=== PATIENT | male | born 1965 | race Caucasian/White ===

== ENCOUNTER 2019-02-02 05:20 | Observation (INO) | payer OTHER ==
[2019-02-02] MEDS ORDERED: ONDANSETRON 4 MG/2 ML VIAL ONE ×2 (05:41→07:49)
[2019-02-02] MEDS ORDERED: PANTOPRAZOLE 40 MG INJ ONE (05:41)
[2019-02-02] MEDS ORDERED: NA CHLORIDE 0.9% 1,000 ML ONE (05:41)
[2019-02-02] MEDS ORDERED: LIDOCAINE VISCOUS 2% SOLN 15 ML UDC ONE (05:41)
[2019-02-02] MEDS ORDERED: MAGNE/ALUM HYDROXD 30 ML UCUP ONE (05:41)
[2019-02-02 05:49] LABS: Absolute Lymphocytes (CBC) 1.3 K/uL (0.7-4.9); Basophils % 0.5 % (0-1.3); Hematocrit 43.8 % (39.6-49.0); Lymphocytes % 10.7 % (15.3-44.8); MPV 8.6 fL (7.6-11.3); RBC Red Blood Cell Count 4.87 M/uL (4.33-5.43)
[2019-02-02 06:08] LABS: Albumin 4.3 g/dL (3.4-5.0); Bilirubin Direct 0.2 mg/dL (0-0.2); Bilirubin Total 0.6 mg/dL (0.2-1.0); Potassium 3.7 mmol/L (3.5-5.1); Protein, Total 7.5 g/dL (6.4-8.2)
[2019-02-02] MEDS ORDERED: MORPHINE 4 MG/ML SYR ONE ×2 (06:35→07:49)
--- NOTE | 2019-02-02 07:26 | RAD REPORT ---
EXAM DESCRIPTION: CT - Abdomen Pelvis W Contrast - 02/02/2019 6:54 am CLINICAL HISTORY: Abdominal pain COMPARISON: none. TECHNIQUE: Computed axial tomography of the abdomen pelvis was obtained. 100 cc Isovue-300 was admin istered intravenously. Oral contrast was not requested which limits evaluation of bowel. All CT scans are performed using dose optimization technique as appropriate and may include automated exposure control or mA/KV adjustment according to patient size. FINDINGS: Mild fatty liver Spleen, pancreas, left adrenal and kidneys appear unremarkable. A 1 millimeter right inferior myelolipoma There is no evidence of diverticulitis. The appendix is retrocecal and extends superiorly. It Is thickened with stranding in the adjacent fat . No free air. No abscess IMPRESSION: Appendicitis
[2019-02-02] MEDS ORDERED: PIPER/TAZO/NS 3.375gm 3.375 GM/100 ML BAG ONE (07:49)
--- NOTE | 2019-02-02 08:01 | EDPHYS ---
Physician Documentation [facility] Name: Jay Daley Age: 53 yrs Sex: Male : 1965 Arrival Date: 02/02/2019 Time: 05:22 Bed 6 Private MD: ED Physician Yon Kc HPI: 02/02 05:52 This 53 yrs old Male presents to ER via Ambulatory with complaints of tw4 Abdominal Pain. 05:52 The patient presents with abdominal pain. Onset: The symptoms/episode began/occurred tw4 today. The symptoms do not radiate. The symptoms are described as sharp. Modifying factors: The symptoms are alleviated by nothing, the symptoms are aggravated by nothing. Severity of pain: At its worst the pain was mild in the emergency department the pain is unchanged. The patient has not experienced similar symptoms in the past. 05:52 The patient presents with abdominal pain in the epigastric area, in the upper abdomen. tw4 Associated signs and symptoms: Pertinent positives: nausea, Pertinent negatives: chest pain, constipation, diarrhea, dysuria, fever, headache, palpitations, shortness of breath, testicular pain, vomiting, vomiting blood. Historical: - Allergies: 05:33 No Known Allergies; tr5 - Home Meds: 05:33 Lipitor Oral [Active]; Simvastatin Oral [Active]; Ativan Oral [Active]; tr5 - PMHx: 05:33 Hypertension; Hyperlipidemia; tr5 - PSHx: 05:33 Knee surgery; tr5 - Immunization history:: Adult Immunizations up to date. - Social history:: Smoking status: Patient/guardian denies using tobacco, never smoked. - Ebola Screening: : No symptoms or risks identified at this time. ROS: 05:52 Constitutional: Negative for fever, chills, and weight loss, Eyes: Negative for injury, tw4 pain, redness, and discharge. 05:52 Cardiovascular: Negative for chest pain, palpitations, and edema, Respiratory: Negative for shortness of breath, cough, wheezing, and pleuritic chest pain, Back: Negative for injury and pain, MS/Extremity: Negative for injury and deformity, Skin: Negative for injury, rash, and discoloration, Neuro: Negative for headache, weakness, numbness, tingling, and seizure. 05:52 Abdomen/GI: Positive for abdominal pain, nausea, abdominal cramps, Negative for nausea and vomiting, nausea, vomiting, and diarrhea, diarrhea, constipation, abdominal distension, anorexia, dysphagia, hematemesis, black/tarry stool, rectal pain, rectal bleeding, bowel incontinence, flatulence. Exam: 05:52 Constitutional: This is a well developed, well nourished patient who is awake, alert, tw4 and in no acute distress. Head/Face: Normocephalic, atraumatic. Chest/axilla: Normal chest wall appearance and motion. Nontender with no deformity. No lesions are appreciated. Cardiovascular: Regular rate and rhythm with a normal S1 and S2. No gallops, murmurs, or rubs. Normal PMI, no JVD. No pulse deficits. Respiratory: Lungs have equal breath sounds bilaterally, clear to auscultation and percussion. No rales, rhonchi or wheezes noted. No increased work of breathing, no retractions or nasal flaring. Back: No spinal tenderness. No costovertebral tenderness. Full range of motion. Skin: Warm, dry with normal turgor. Normal color with no rashes, no lesions, and no evidence of cellulitis. MS/ Extremity: Pulses equal, no cyanosis. Neurovascular intact. Full, normal range of motion. Neuro: Awake and alert, GCS 15, oriented to person, place, time, and situation. Cranial nerves II-XII grossly intact. Motor strength 5/5 in all extremities. Sensory grossly intact. Cerebellar exam normal. Normal gait. 05:52 Abdomen/GI: Inspection: abdomen appears normal, Bowel sounds: diminished, in all quadrants, Palpation: moderate abdominal tenderness, in the epigastric area and right upper quadrant. Vital Signs: 05:33 BP 154 / 96; Pulse 73; Resp 17; Pulse Ox 100% on R/A; Weight 111.13 kg; Height 6 ft. 5 tr5 in. (195.58 cm); 07:07 Temp 97.7; sg 05:33 Body Mass Index 29.05 (111.13 kg, 195.58 cm) tr5 MDM: 05:25 Patient medically screened. tw4 07:58 Data reviewed: vital signs, nurses notes, lab test result(s), radiologic studies, CT jr8 scan. Data interpreted: Pulse oximetry: on room air is 100 %. Interpretation: normal. Counseling: I had a detailed discussion with the patient and/or guardian regarding: the historical points, exam findings, and any diagnostic results supporting the discharge/admit diagnosis, lab results, radiology results, the need for further work-up and treatment in the hospital. Physician consultation: Miguel Rojas MD was called at 07:58, was contacted at 07:58, regarding consult. ED course: Dr. Johansen called and accepted patient for admit. Dr. Rojas to do surgery within the hour. 02/02 05:26 Order name: Basic Metabolic Panel; Complete Time: 06:15 02/02 06:15 Interpretation: Normal except: CL 108; GFR 70; GLUC 143. 02/02 05:26 Order name: CBC with Diff; Complete Time: 06:15 02/02 05:26 Order name: Creatinine for Radiology; Complete Time: 06:15 02/02 06:15 Interpretation: Within normal limits: CRE 1.10. 02/02 05:26 Order name: Hepatic Function; Complete Time: 06:15 02/02 06:15 Interpretation: Within normal limits. 02/02 05:26 Order name: Lipase; Complete Time: 06:15 02/02 06:16 Interpretation: Within normal limits: LIP 160. 02/02 06:30 Order name: CT Abd/Pelvis - IV Contrast Only; Complete Time: 07:33 02/02 05:26 Order name: IV Saline Lock; Complete Time: 05:37 02/02 05:26 Order name: Labs collected and sent; Complete Time: 05:37 tw4 Administered Medications: 05:48 Drug: ProTONIX 40 mg Route: IVP; Site: right forearm; tr5 06:38 Follow up: Response: Marked relief of symptoms tr5 05:48 Drug: Zofran 4 mg Route: IVP; Site: right forearm; tr5 06:37 Follow up: Response: Marked relief of symptoms tr5 05:49 Drug: NS 0.9% 1000 ml Route: IV; Rate: 1 bolus; Site: right forearm; tr5 05:49 Drug: GI Cocktail with - (Phenobarbital-Belladonna 10 ml, Maalox Suspension 30 tr5 ml, Lidocaine Liquid 2 % 20 ml) Route: PO; 06:38 Follow up: Response: Marked relief of symptoms tr5 06:37 Drug: morphine 4 mg {Note: RASS:0.} Route: IVP; Site: right antecubital; tr5 07:46 Follow up: Response: No adverse reaction; Pain is unchanged, physician notified; RASS: tw2 Alert and Calm (0) 07:55 Drug: Zofran 4 mg Route: IVP; Site: right forearm; sg 07:57 Drug: Zosyn 3.375 grams Route: IVPB; Infused Over: 60 mins; Site: right forearm; sg 07:57 Drug: morphine 4 mg Route: IVP; Site: right forearm; sg Disposition: 02/02/19 07:59 Hospitalization ordered by Mark Johansen for Observation. Preliminary diagnosis is Acute appendicitis with localized peritonitis. - Bed requested for Telemetry/MedSurg (observation). - Status is Observation. sg - Condition is Stable. - Problem is new. - Symptoms are unchanged. UTI on Admission? No Addendum: 02/06/2019 06:56 Co-signature as Attending Physician, Yon Kc MD I agree with the assessment and t w4 plan of care. Signatures: Dispatcher [employer] EDMS Jeremias Herman RN RN sg Rodríguez Morillo PA PA jr8 Yon Kc MD MD tw4 Emilie Azar Tommie, RN RN tr5 Saloni Leo RN tw2 Corrections: (The following items were deleted from the chart) 02/02 05:53 05:52 Associated signs and symptoms: none. 4 tw4 08:08 07:59 Hospitalization Ordered by Mark Johansen DO for Observation. Preliminary eb diagnosis is Acute appendicitis with localized peritonitis. Bed requested for Telemetry/MedSurg (observation). Status is Observation. Condition is Stable. Problem is new. Symptoms are unchanged. UTI on Admission? No. jr8 08:58 08:08 02/02/2019 07:59 Hospitalization Ordered by Mark Johansen DO for Observation. sg Preliminary diagnosis is Acute appendicitis with localized peritonitis. Bed requested for Telemetry/MedSurg (observation). Status is Observation. Condition is Stable. Problem is new. Symptoms are unchanged. UTI on Admission? No. eb
--- NOTE | 2019-02-02 08:01 | ER ---
Nurse's Notes [facility] Name: Jay Daley Age: 53 yrs Sex: Male : 1965 Arrival Date: 02/02/2019 Time: 05:22 Bed 6 Private MD: Diagnosis: Acute appendicitis with localized peritonitis Presentation: 02/02 05:30 Presenting complaint: Patient states: "At about 11:30 last night I woke up with some tr5 painful abdominal cramps. It hurts mostly in the upper L area and it has been making me a little nauseous.". Transition of care: patient was not received from another setting of care. Onset of symptoms was February 02, 2019. Risk Assessment: Do you want to hurt yourself or someone else? Patient reports no desire to harm self or others. Initial Sepsis Screen: Does the patient meet any 2 criteria? No. Patient's initial sepsis screen is negative. Does the patient have a suspected source of infection? No. Patient's initial sepsis screen is negative. Care prior to arrival: None. 05:30 Method Of Arrival: Ambulatory tr5 05:30 Acuity: CARIN 3 tr5 Historical: - Allergies: 05:33 No Known Allergies; tr5 - Home Meds: 05:33 Lipitor Oral [Active]; Simvastatin Oral [Active]; Ativan Oral [Active]; tr5 - PMHx: 05:33 Hypertension; Hyperlipidemia; tr5 - PSHx: 05:33 Knee surgery; tr5 - Immunization history:: Adult Immunizations up to date. - Social history:: Smoking status: Patient/guardian denies using tobacco, never smoked. - Ebola Screening: : No symptoms or risks identified at this time. Screenin:35 Abuse screen: Denies threats or abuse. Nutritional screening: No deficits noted. tr5 Tuberculosis screening: No symptoms or risk factors identified. Fall Risk None identified. Assessment: 05:35 General: Appears uncomfortable, Behavior is calm, cooperative, appropriate for age. tr5 Pain: Complains of pain in left upper quadrant Pain does not radiate. Quality of pain is described as crampy, Pain began 4 hours ago. Neuro: Level of Consciousness is awake, alert, obeys commands, Oriented to person, place, time, [facility] House[facility] are equal bilaterally Moves all extremities. Cardiovascular: Heart tones present Capillary refill < 3 seconds Pulses are all present. Edema is absent. Respiratory: Airway is patent Respiratory effort is even, unlabored, Respiratory pattern is regular, symmetrical. GI: Bowel sounds present X 4 quads. Abd is soft Abdomen is tender to palpation in right upper quadrant and left upper quadrant. GI: Reports nausea. : No signs and/or symptoms were reported regarding the genitourinary system. EENT: No signs and/or symptoms were reported regarding the EENT system. Derm: No signs and/or symptoms reported regarding the dermatologic system. Musculoskeletal: No signs and/or symptoms reported regarding the musculoskeletal system. 07:25 Reassessment: pt to void x1, denies any urinary symptoms at this time. sg 07:33 Reassessment: Patient appears in no apparent distress at this time. Rodríguez HAYNES at sg bedside for evaluation and update on POC and results from radiology, pt and pt family stated understanding, awaiting new orders at this time. 08:46 Reassessment: Patient appears in no apparent distress at this time. Patient and/or sg family updated on plan of care and expected duration. Pain level reassessed. awaiting a bed assignment, awaiting OR team at this time, pt reports pain controlled and family at bedside. Vital Signs: 05:33 BP 154 / 96; Pulse 73; Resp 17; Pulse Ox 100% on R/A; Weight 111.13 kg; Height 6 ft. 5 tr5 in. (195.58 cm); 07:07 Temp 97.7; sg 05:33 Body Mass Index 29.05 (111.13 kg, 195.58 cm) tr5 ED Course: 05:22 Patient arrived in ED. cl3 05:25 Yon cK MD is Attending Physician. tw4 05:30 Froilan Cameron, RN is Primary Nurse. tr5 05:32 Triage completed. tr5 05:33 Arm band placed on Patient placed. tr5 05:35 Placed in gown. Bed in low position. Call light in reach. Side rails up X 1. tr5 06:[address] via stretcher. eh 06:54 CT completed. Patient tolerated procedure well. Patient moved back from CT. eh 06:54 CT Abd/Pelvis - IV Contrast Only In Process Unspecified. EDMS 07:06 Primary Nurse role handed off by Froilan Cameron, RN sg 07:06 Jeremias Herman, RN is Primary Nurse. sg 07:31 Rod[facility]guez Morillo [facility] jr8 07:55 Surgical consent explained by physician, signed by patient. sg 07:59 Mark Johansen DO is Hospitalizing Provider. jr8 08:20 Admitting physician to see patient. sg Administered Medications: 05:48 Drug: ProTONIX 40 mg Route: IVP; Site: right forearm; tr5 06:38 Follow up: Response: Marked relief of symptoms tr5 05:48 Drug: Zofran 4 mg Route: IVP; Site: right forearm; tr5 06:37 Follow up: Response: Marked relief of symptoms tr5 05:49 Drug: NS 0.9% 1000 ml Route: IV; Rate: 1 bolus; Site: right forearm; tr5 05:49 Drug: GI Cocktail with - (Phenobarbital-Belladonna 10 ml, Maalox Suspension 30 tr5 ml, Lidocaine Liquid 2 % 20 ml) Route: PO; 06:38 Follow up: Response: Marked relief of symptoms tr5 06:37 Drug: morphine 4 mg {Note: RASS:0.} Route: IVP; Site: right antecubital; tr5 07:46 Follow up: Response: No adverse reaction; Pain is unchanged, physician notified; RASS: tw2 Alert and Calm (0) 07:55 Drug: Zofran 4 mg Route: IVP; Site: right forearm; sg 07:57 Drug: Zosyn 3.375 grams Route: IVPB; Infused Over: 60 mins; Site: right forearm; sg 07:57 Drug: morphine 4 mg Route: IVP; Site: right forearm; sg Outcome: 07:59 Decision to Hospitalize by Provider. jr8 08:58 Patient left the ED. sg Signatures: Dispatcher [employer] EDMS Jeremias Herman RN RN sg Chava Sin Josh, PA PA jr8 Saloni Leo RN RN tw2 Yon Kc MD MD tw4 Froilan Cameron RN RN tr5 Ping Nguyen cl3
--- NOTE | 2019-02-02 09:04 | P.HP ---
Certification for Inpatient Patient admitted to: Observation With expected LOS: <2 Midnights Patient will require the following post-hospital care: None Practitioner: I am a practitioner with admitting privileges, knowledge of patient current condition, hospital course, and medical plan of care. Services: Services provided to patient in accordance with Admission requirements found in Title 42 Section 412.3 of the Code of Federal Regulations Patient History Date of Service: 02/02/19 Primary Care Provider: CALLIE Montgomery Reason for admission: Dominant pain History of Present Illness: 53-year-old male with history of hypertension, hypertriglyceridemia. Patient presented to the emergency room with increasing abdominal pain pain started last night. It was mainly to the periumbilical region. It is now progressed to the right lower quadrant. He rated the pain about at 6/10. He did not have any significant nausea, vomiting, fever, chills, or shortness of breath. The pain persisted and felt very uncomfortable. He came to the ER for further evaluation. In the ER patient was evaluated. White count 12.2, hemoglobin 15.2. Sodium 139 , potassium 3.7, BUN of 16, creatinine 1.01 with a GFR of 70. Glucose 143. Lipase unremarkable. CT scan revealed acute appendicitis. Patient was admitted for treatment. When I saw the patient in the ER, pain controlled with medication. Surgery has been consulted. Patient NPO in anticipation for surgery. Allergies No Known Allergies Allergy (Unverified 02/02/19 08:53) Home medications list reviewed: Yes - Past Medical/Surgical History Diabetic: No -: Hypertension -: Hyperlipidemia -: Subclinical hypothyroidism -: Hand surgery -: Knee surgery Psychosocial/ Personal History: Patient is . - Family History Father -: Other (see notes) (Hypothyroidism) - Social History Smoking Status: Never smoker Alcohol use: Yes CD- Drugs: No Caffeine use: Yes Place of Residence: Home Review of Systems General: As per HPI Eyes: Unremarkable ENT: Unremarkable Respiratory: Unremarkable Cardiovascular: Unremarkable Gastrointestinal: Abdominal Pain, As per HPI Genitourinary: Unremarkable Musculoskeletal: Unremarkable Integumentary: Unremarkable Neurological: Unremarkable Lymphatics: Unremarkable Physical Examination - Physical Exam General: Alert, In no apparent distress, Oriented x3, Cooperative HEENT: Atraumatic, Normocephalic, Mucous membr. moist/pink Neck: Supple, No Thyromegaly Respiratory: Clear to auscultation bilaterally, Normal air movement Cardiovascular: Normal pulses, Regular rate/rhythm Gastrointestinal: Normal bowel sounds, Soft and benign, Non-distended, No masses , No rebound, No guarding, Tenderness (Mild pain to the right lower quadrant with deep palpation) Musculoskeletal: No erythema, No tenderness, No warmth Integumentary: No tenderness/swelling, No erythema, No warmth, No cyanosis Neurological: Normal speech, Normal strength at 5/5 x4 extr, Normal tone, Normal affect - Studies Laboratory Data (last 24 hrs) 02/02/19 05:35: Creatinine 1.10 02/02/19 05:35: WBC 12.2 H, Hgb 15.2, Hct 43.8, Plt Count 254 02/02/19 05:35: Sodium 139, Potassium 3.7, BUN 16, Creatinine 1.11, Glucose 143 H, Total Bilirubin 0.6, AST 18, ALT 43, Alkaline Phosphatase 71, Lipase 160 Assessment and Plan - Plan Impression: Right lower quadrant abdominal pain secondary to acute appendicitis Hypertension Hyperlipidemia Plan: Right lower quadrant abdominal pain secondary to acute appendicitis: Patient will be admitted for further evaluation and treatment. Surgery has been consulted. Patient NPO as surgical intervention is planned. Patient will likely require laparoscopic appendectomy. Will start IV fluids. Will provide IV pain medication. Will provide SCD for DVT prophylaxis. Await findings and further recommendations from surgery. Anticipate discharge likely within the next 1-2 days pending surgical evaluation and treatment. Hypertension: Will provide IV medication as needed. Hyperlipidemia: Will hold medication at this time. Discharge Plan: Home Plan to discharge in: 48 Hours - Advance Directives Does patient have a Living Will: No Does patient have a Durable POA for Healthcare: No - Code Status/Comfort Care Code Status Assessed: Yes (Patient is full code) Time Spent Managing Pts Care (In Minutes): 55
[2019-02-02] MEDS ORDERED: Ringers Lactate 1,000 ML IV ONE ×2 (09:13→10:28)
[2019-02-02] MEDS ORDERED: SUCCINYLCHOLINE 20 MG/ML (10 ML) IV ONE (09:36)
[2019-02-02] MEDS ORDERED: PROPOFOL 200 MG/20 ML VIAL IV ONE (09:38)
[2019-02-02] MEDS ORDERED: FENTANYL CITR 250 MCG/5 ML ONE (09:39)
[2019-02-02] MEDS ORDERED: MIDAZOLAM HCL 2 MG/2 ML INJ ONE (09:39)
[2019-02-02] MEDS ORDERED: ROCURONIUM 50 MG/5 ML VIAL IV ONE (09:39)
[2019-02-02] MEDS ORDERED: ACETAMINOPHEN 500 MG TAB PO PRN (09:58)
[2019-02-02] MEDS ORDERED: MORPHINE 2 MG/ML SYR IV PRN (09:58)
[2019-02-02] MEDS ORDERED: HYDRALAZINE HCL 20 MG/ML VIAL IV PRN (09:58)
[2019-02-02] MEDS ORDERED: ACETAMINOPHEN 650MG/RECT SUPP PR PRN (09:58)
[2019-02-02] MEDS ORDERED: ONDANSETRON 4 MG/2 ML VIAL IV PRN ×2 (09:58→10:46)
[2019-02-02] MEDS ORDERED: NEOSTIGMINE 1 MG/ML -5 ML ONE (10:13)
[2019-02-02] MEDS ORDERED: GLYCOPYRROLATE 0.2 MG/ML SYR ONE ×2 (10:13)
[2019-02-02 10:21] LABS: Urine Blood NEGATIVE (NEG); Urine Glucose NEGATIVE (NEG); Urine Protein NEGATIVE (NEG); Urine Specific Gravity 1.015 (1.005-1.030); Urine pH 7.5 (5.0-7.0)
--- NOTE | 2019-02-02 10:41 | P.OP ---
Preoperative diagnosis: Acute Appendicitis Postoperative diagnosis: Acute Suppurative Appendicitis Primary procedure: Lap Appy Anesthesia: General Estimated blood loss: min Specimen: Appy Findings: as above Complications: None Transferred to: Recovery Room Condition: Good
[2019-02-02] MEDS ORDERED: HYDROMORPHONE HCL 1 MG/ML INJ IV PRN (10:46)
[2019-02-02] MEDS ORDERED: KETOROLAC 30 MG/ML INJ ONE (11:03)
[2019-02-02 12:16] VITALS: BMI 29.0
[2019-02-02] MEDS: HYDROCODONE/APAP 7.5/325 MG TAB PO PRN ×2 (13:09→20:08)
--- NOTE | 2019-02-02 13:43 | PREOPCON ---
Date of Consultation: 02/02/2019 Chief Complaint: Abdominal pain. History Of Present Illness: Patient is a 53-year-old gentleman, who had acute onset of periumbilical pain localizing to the right lower quadrant associated with anorexia and nausea. No vomiting. No d iarrhea or constipation. No blood in his stool. No dysuria or hematuria. No sore throat, runny nos e, cough, headaches, dizziness, chest pain, fever, or chills. Review of Systems: Otherwise unremarkable. Past Medical History: Hypertension, hypercholesterolemia, hypertriglyceridemia. Past Surgical History: Left knee surgery. Right hand surgery. Allergies: NO ALLERGIES. Social History: Does not smoke. Drinks occasionally. Family History: Significant for heart disease Physical Examination: Vital Signs: Stable, currently afebrile. General: Awake, alert, oriented x3. Head and Neck: Cranial nerves 2 through 12 are grossly within normal limits. No neck masses. No JV D. Throat clear. Neck is supple. Chest: Clear. Heart: S1, S2. Abdomen: Soft. Positive Rovsing sign. Positive bowel sounds. Positive right lower quadrant tender ness with rebound. No rigidity or guarding. Extremities: Adequately perfused. Nontender. Neuro: Nonfocal. Laboratory Data: White count is slightly elevated at 12,000 with a left shift. Electrolytes are rev iewed. CT of the abdomen and pelvis consistent with acute retrocecal appendicitis. Assessment: Acute appendicitis. Plan: Admit n.p.o., IV fluid, IV antibiotic to the OR for lap appy, possible open. Patient understa nds the risks, benefits, and alternatives and agrees to procedure. JAKUB/KENDELL Voice ID: [id number] Report ID: [id number]
[2019-02-02] MEDS ORDERED: INFLUENZA VACCINE (for 3y+) 0.5 ML DOSE IMVAC ONE (14:00)
[2019-02-02] MEDS: NA CHLORIDE 0.9% 1,000 ML IV SCH ×2 (16:03→19:58)
[2019-02-02] MEDS: PIPER/TAZO/NS 3.375gm 3.375 GM/100 ML BAG IVPB SCH (16:57)
--- NOTE | 2019-02-02 21:03 | OP ---
Date of Procedure: 02/02/2019 Surgeon: Miguel Rojas MD Preoperative Diagnosis: Acute appendicitis. Postoperative Diagnosis: Acute suppurative appendicitis. Procedure Performed: Laparoscopic appendectomy. Estimated Blood Loss: Minimal. Findings: As above. Anesthesia: General. Complications: None. Disposition: The patient tolerated the procedure in stable condition and taken to Recovery in good g eneral condition. Procedure In Detail: The patient was brought to the OR and placed in supine position. General anest hesia begun. Patient was prepped and draped in usual sterile fashion. Marcaine 0.5% was infiltrated locally. A 15-blade was used to make a 1 cm supraumbilical midline incision. Subcutaneous tissue d ivided. The fascia was identified and divided. A #1 Vicryl stay suture was placed. Peritoneal cavi ty was entered with blunt dissection. A 12 mm trocar was placed into the peritoneal cavity under dir ect vision. Pneumoperitoneum was established and then two 5 mm trocars were placed 1 in the suprapubic region and 1 in the left lower quadrant. Laparoscopy revealed acute suppurative appendicitis. Retrocecal in l ocation. The base of the appendix on the cecum clearly identified as well as the mesoappendix and a GRIS stapling device used to divide both structures. The appendix retrieved through the umbilicus via an EndoCatch bag. Right lower quadrant irrigated. Pelvis examined. No evidence of bleeding or bow el injury appreciated. All trocars removed under direct vision. Stay sutures were tied to each othe r to reapproximate the fascial defect. Subcu wounds irrigated. Bleeding controlled with cautery. A 3-0 chromic used to reapproximate subcutaneous tissue and close the skin. [place] used to close ski n. Sterile dressing was applied. The patient was awakened and taken to Recovery in good general cond ition. Discharge Instructions: The patient will be kept another night for IV antibiotics because he had sup purative appendicitis. /MODL Voice ID: [id number] Report ID: [id number]
[2019-02-03] MEDS: PIPER/TAZO/NS 3.375gm 3.375 GM/100 ML BAG IVPB SCH ×2 (00:03→08:00)
[2019-02-03] MEDS: HYDROCODONE/APAP 7.5/325 MG TAB PO PRN ×2 (01:55→07:54)
[2019-02-03 03:21] LABS: Urine Appearance CLEAR; Urine Bilirubin NEGATIVE (NEG); Urine Blood NEGATIVE (NEG); Urine Color YELLOW; Urine Glucose NEGATIVE (NEG); Urine Protein NEGATIVE (NEG); Urine Specific Gravity 1.025 (1.005-1.030); Urine Urobilinogen 0.2 mg/dL (0.2-1.0)
[2019-02-03 03:28] LABS: Urine Microscopic Reflex ORDER UMIC
[2019-02-03] MEDS: NA CHLORIDE 0.9% 1,000 ML IV SCH ×2 (03:46→05:58)
[2019-02-03 03:49] LABS: Urine Bacteria <20 /HPF (NONE SEEN); Urine Culture Reflex Order REFLEXED; Urine RBC NONE SEEN /HPF (NONE SEEN)
[2019-02-03 05:26] LABS: Absolute Lymphocytes (CBC) 1.6 K/uL (0.7-4.9); Basophils % 0.4 % (0-1.3); Lymphocytes % 14.2 % (15.3-44.8); MPV 8.9 fL (7.6-11.3); RBC Red Blood Cell Count 3.63 M/uL (4.33-5.43)
[2019-02-03 05:41] LABS: Magnesium 2.1 mg/dL (1.8-2.4); Potassium 4.2 mmol/L (3.5-5.1)
[2019-02-03 08:14] VITALS: BP 125/73; TEMP 97.6
[2019-02-03 08:33] VITALS: O2SAT 95
--- NOTE | 2019-02-03 08:46 | P.DS ---
Admission Date: 02/02/19 Discharge Date: 02/03/19 Primary [facility] Provider: [facility] Disposition: ROUTINE DISCHARGE Discharge Condition: GOOD Reason for Admission: Abdominal pain Consultations: Surgery-Dr. Rojas Procedures: CT scan: FINDINGS: Mild fatty liver Spleen, pancreas, left adrenal and kidneys appear unremarkable. A 1 millimeter right inferior myelolipoma There is no evidence of diverticulitis. The appendix is retrocecal and extends superiorly. It Is thickened with stranding in the adjacent fat. No free air. No abscess IMPRESSION: Appendicitis Surgery: Date of surgery: 02/02/2019 Surgeon: Dr. Rojas Preop diagnosis: Acute appendicitis Postop diagnosis: Acute supportive appendicitis Complications: None Medical problem list: Right lower quadrant abdominal pain secondary to acute appendicitis Hypertension Hyperlipidemia Fatty liver Brief History of Present Illness: 53-year-old male with history of hypertension, hypertriglyceridemia. Patient presented to the emergency room with increasing abdominal pain pain started last night. It was mainly to the periumbilical region. It is now progressed to the right lower quadrant. He rated the pain about at 6/10. He did not have any significant nausea, vomiting, fever, chills, or shortness of breath. The pain persisted and felt very uncomfortable. He came to the ER for further evaluation. In the ER patient was evaluated. White count 12.2, hemoglobin 15.2. Sodium 139 , potassium 3.7, BUN of 16, creatinine 1.01 with a GFR of 70. Glucose 143. Lipase unremarkable. CT scan revealed acute appendicitis. Patient was admitted for treatment. When I saw the patient in the ER, pain controlled with medication. Surgery has been consulted. Patient NPO in anticipation for surgery. Hospital Course: Patient presented with right lower quadrant abdominal pain secondary to acute appendicitis. CT scan reviewed. Surgery consulted. Surgery recommended surgical intervention. Laparoscopic appendectomy performed. No complications noted. Patient has done well post operatively. Patient tolerating diet. At discharge patient will continue with surgery recommendations, medication and instructions. No heavy lifting, pushing or pulling. Recommend follow up with surgery within 1 week to follow up this hospitalization. Patient with history of hypertension. This has remained stable. Patient may continue with his home medications including aspirin 81 mg daily and candesartan /hydrochlorothiazide 16/12.5 mg daily. Patient with mixed hyperlipidemia. At discharge patient will continue with his current medication of Lipitor 20 mg daily, fish oil 2000 mg daily, and fenofibrate 135 mg daily. Patient with fatty liver. Lifestyle modification education provided. Vital Signs/Physical Exam: Temp Pulse Resp BP Pulse Ox 97.6 F 69 17 125/73 97 02/03/19 08:00 02/03/19 08:00 02/03/19 08:00 02/03/19 08:00 02/03/19 08:00 General: Alert, In no apparent distress, Oriented x3, Cooperative HEENT: Atraumatic Neck: Supple Respiratory: Clear to auscultation bilaterally, Normal air movement Cardiovascular: Normal pulses, Regular rate/rhythm Gastrointestinal: Normal bowel sounds, Soft and benign, Non-distended, No masses , No rebound, No guarding, Other (Postsurgical changes noted) Musculoskeletal: No tenderness, No warmth Integumentary: No erythema, No warmth, No cyanosis Neurological: Normal speech, Normal strength at 5/5 x4 extr, Normal tone, Normal affect Laboratory Data at Discharge: WBC 10.9 K/uL (4.3-10.9) 02/03/19 04:58 Hgb 11.7 g/dL (13.6-17.9) L D 02/03/19 04:58 Hct 33.0 % (39.6-49.0) L D 02/03/19 04:58 Plt Count 251 K/uL (152-406) 02/03/19 04:58 Sodium 138 mmol/L (136-145) 02/03/19 04:58 Potassium 4.2 mmol/L (3.5-5.1) 02/03/19 04:58 BUN 10 mg/dL (7-18) 02/03/19 04:58 Creatinine 1.00 mg/dL (0.55-1.3) 02/03/19 04:58 Glucose 128 mg/dL (74-106) H 02/03/19 04:58 Magnesium 2.1 mg/dL (1.8-2.4) 02/03/19 04:58 Total Bilirubin 0.6 mg/dL (0.2-1.0) 02/02/19 05:35 AST 18 U/L (15-37) 02/02/19 05:35 ALT 43 U/L (12-78) 02/02/19 05:35 Alkaline Phosphatase 71 U/L (45-117) 02/02/19 05:35 Lipase 160 U/L (73-393) 02/02/19 05:35 Home Medications: Aspirin [Aspirin EC 81 MG] 81 mg PO DAILY 02/02/19 Atorvastatin Calcium [Lipitor*] 20 mg PO BEDTIME 02/02/19 Candesartan/Hydrochlorothiazid [Candesartan-Hctz 16-12.5 mg Tb] 1 each PO DAILY 02/02/19 Docosahexanoic AC/Epa [Fish Oil 1,000 MG*] 2,000 mg PO DAILY 02/02/19 Fenofibric Acid (Choline) [Fenofibric Acid] 135 mg PO DAILY 02/02/19 Patient Discharge Instructions: 1. Recommend follow up with his PCP in 1-2 weeks to follow up this hospitalization. 2. Patient presented with right lower quadrant abdominal pain secondary to acute appendicitis. CT scan reviewed. Surgery consulted. Surgery recommended surgical intervention. Laparoscopic appendectomy performed. No complications noted. Patient has done well post operatively. Patient tolerating diet. At discharge patient will continue with surgery recommendations, medication and instructions. No heavy lifting, pushing or pulling. Recommend follow up with surgery within 1 week to follow up this hospitalization. 3. Patient with history of hypertension. This has remained stable. Patient may continue with his home medications including aspirin 81 mg daily and candesartan/hydrochlorothiazide 16/12.5 mg daily. 4. Patient with mixed hyperlipidemia. At discharge patient will continue with his current medication of Lipitor 20 mg daily, fish oil 2000 mg daily, and fenofibrate 135 mg daily. 5. Patient with fatty liver. Lifestyle modification education provided. Diet: AHA Activity: Ad alphonse Time spent managing pt's care (in minutes): 55
--- NOTE | 2019-02-03 14:18 | PN ---
Date of Progress Note: 02/03/2019 Subjective: Patient is status post lap appy postop day 1. Tolerating diet, ambulating, pain control led, on p.o. pain medication, afebrile. White count is normalized. Objective: VITAL SIGNS: Stable. He is afebrile. ABDOMEN: Soft, nondistended, nontender. Positive bowel sounds. Dressing is clean, dry, and intact. Assessment: Status post laparoscopic appendectomy. Recommendations: Patient cleared from Surgery for discharge. Followup in my office in 1 week. Disc harge instructions given. /[email or web address] Voice ID: [id number] Report ID: [id number]
== END 2019-02-03 10:56 | disposition home or self-care (01) ==
LOC: ER 05:20 → ERHOLD 08:54 → 2ND 10:53
PROVIDERS: ADMIT Family Medicine; ATTEND Family Medicine
PROC: 0DTJ4ZZ Resection of Appendix, Percutaneous Endoscopic Approach (ICD-10-PCS; principal; 2019-02-02 09:00)
DX: K35.80 Unspecified acute appendicitis (principal); I10 Essential (primary) hypertension; E78.5 Hyperlipidemia, unspecified; K76.0 Fatty (change of) liver, not elsewhere classified
CPT/HCPCS: 36415; 74177; 80048; 80076; 81003; 81015; 83690; 83735; 85025; 87040; 87086; 87088; 88304; 96374; 96375; 99284; C9113; G0378; J0330; J1170; J2250; J2405; J2543; J2704; J2710; J3010; J7030; J7120; Q9967